=== PATIENT | female | born 1950 | race Caucasian/White ===

== ENCOUNTER 2022-10-25 07:00 | Outpatient (CLI) | payer MEDICARE, OTHER ==
--- NOTE | 2022-10-25 20:57 | XRAY Report ---
PROCEDURE: Foot 3 View LT INDICATIONS: LEFT FOOT INFECTION TECHNIQUE: 3 views of the foot were acquired. COMPARISON: None. FINDINGS: Bones: There are bony erosions and fragmentation of the first distal phalanx distally consistent with sequelae of osteomyelitis. Remaining visualized osseous structures appear intact. No dislocations. Soft tissues: There is soft tissue swelling of the great toe without definite soft tissue gas or disc rete ulcer. IMPRESSION: 1. Bony erosions and fragmentation of the first distal phalanx consistent with sequelae of osteomyeli tis. Reviewed by: Noam Alves MD on 10/25/2022 8:55 PM PST Approved by: Noam Alves MD on 10/25/2022 8:55 PM [facility] Station ID: [id number]
== END 2022-10-25 07:01 | disposition home or self-care (01) ==
LOC: DI.S 07:00
PROVIDERS: ATTEND Physician Assistant
DX: E11.42 Type 2 diabetes mellitus with diabetic polyneuropathy (principal); M85.872 Other specified disorders of bone density and structure, left ankle and foot

== ENCOUNTER 2022-10-25 20:06 | Emergency (ER) | payer MEDICARE ==
[2022-10-25] MEDS ORDERED: VANCOMYCIN INJ 1.25 GM in SODIUM CHLORIDE 0.9% 250 ML IV STA (20:32)
[2022-10-25] MEDS ORDERED: KETOROLAC 15 MG/ML VIAL IVP STA (20:36)
--- NOTE | 2022-10-25 20:40 | ED Physician Documentation ---
History of Present Illness - Stated complaint Stated Complaint: LT TOE INFECTION - Chief complaint Chief Complaint: Ext Problem - History obtained from History obtained from: Patient - Additonal information Additional information: 71-year-old woman past medical history of diabetes, ckd, presents with right first toe redness over the proximal couple of weeks. Patient Went to clinic a week ago and was provided with antifungal ointment but the redness progressed and led to swelling, pain and subjective fevers. Otherwise asymptomatic.Denies trauma. Review of Systems Constitutional: reports: Fever, Chills Skin: reports: Other (erythema of toe) Musculoskeletal: reports: Extremity pain, Extremity swelling PD PAST MEDICAL HISTORY - Past Medical History Past Medical History: Yes Cardiovascular: Hypertension, High cholesterol Respiratory: Sleep apnea, CPAP use Endocrine/Autoimmune: Type 2 diabetes Psych: Depression - Past Surgical History Past Surgical History: Yes HEENT: Other - Present Medications Home Medications: Ambulatory Orders Medication Instructions Recorded Confirmed Insulin Glargine [Lantus] 30 units SQ DAILY 05/04/14 10/25/22 Insulin NPH Human Isophane 40 units SQ BID 05/04/14 10/25/22 [Humulin N] Calcium/D3/Zinc/Copper/Ismael 1 tab PO DAILY 10/25/22 10/25/22 [Citracal-D3 Maximum Plus Caplt] Dapagliflozin Propanediol [Farxiga] 5 mg PO DAILY 10/25/22 10/25/22 Doxycycline Hyclate 100 mg PO BID 10 Days #20 tab 10/25/22 Losartan [Cozaar] 50 mg PO DAILY 10/25/22 10/25/22 Mupirocin 2% Oint [Bactroban 2% 1 applic TOP BID 14 Days #50 gm 10/25/22 Oint] NIFEdipine [Procardia Xl] 30 mg PO DAILY 10/25/22 10/25/22 Rosuvastatin Calcium [Crestor] 10 mg PO DAILY 10/25/22 10/25/22 Semaglutide [Ozempic] 1 tab PO ONCE 10/25/22 10/25/22 Sertraline [Zoloft] 25 mg PO DAILY 10/25/22 10/25/22 Spironolactone [Aldactone] 25 mg PO DAILY 10/25/22 10/25/22 cephALEXin [Keflex] 500 mg PO BID #20 cap 10/25/22 - Allergies Allergies/Adverse Reactions: Allergies Allergy/AdvReac Type Severity Reaction Status Date / Time varenicline tartrate * AdvReac Unknown Verified 10/25/22 20:10 [From Chantix] - Social History Does the pt smoke?: No Smoking Status: Never smoker Does the pt drink ETOH?: No Does the pt have substance abuse?: No - Immunizations Immunizations are current?: Yes - POLST Patient has POLST: No PD ED PE NORMAL - Vitals Vital signs reviewed: Yes - General General: Alert and oriented X 3, No acute distress, Well developed/nourished - Derm Derm: Normal color, Warm and dry, Other (Erythema, swelling of left first toe.) - Extremities Extremities: Other (Left first toe tender to palpation. evidence of fungal nail infection to all toes. 2+ DP pulses bilaterally.) Results - Vitals Vitals: Vital Signs - 24 hr 10/25/22 20:11 Temperature 37.5 C Heart Rate 102 H Respiratory 18 Rate Blood Pressure 151/73 H O2 Saturation 98 Oxygen O2 Source Room air - Labs Labs: Laboratory Tests 10/25/22 10/25/22 10/25/22 20:53 20:53 20:53 WBC 15.7 H RBC 4.79 Hgb 12.6 Hct 39.4 MCV 82.3 MCH 26.3 L MCHC 32.0 RDW 12.6 Plt Count 368 MPV 8.4 Neut # (Auto) 10.7 H Lymph # (Auto) 3.8 H Cochran # (Auto) 0.9 Eos # (Auto) 0.2 Baso # (Auto) 0.1 Absolute Nucleated RBC 0.00 Nucleated RBC % 0.0 ESR Sodium 133 L Potassium 3.9 Chloride 95 L Carbon Dioxide 25 Anion Gap 13.0 BUN 30 H Creatinine 1.9 H Estimated GFR (MDRD) 26 L Glucose 193 H Lactic Acid 0.9 Calcium 8.8 Total Bilirubin 0.6 AST 15 ALT 18 Alkaline Phosphatase 103 C-Reactive Protein 4.5 H Total Protein 7.6 Albumin 4.1 Globulin 3.5 Albumin/Globulin Ratio 1.2 10/25/22 20:53 WBC RBC Hgb Hct MCV MCH MCHC RDW Plt Count MPV Neut # (Auto) Lymph # (Auto) Cochran # (Auto) Eos # (Auto) Baso # (Auto) Absolute Nucleated RBC Nucleated RBC % ESR 70 H Sodium Potassium Chloride Carbon Dioxide Anion Gap BUN Creatinine Estimated GFR (MDRD) Glucose Lactic Acid Calcium Total Bilirubin AST ALT Alkaline Phosphatase C-Reactive Protein Total Protein Albumin Globulin Albumin/Globulin Ratio PD Medical Decision Making - ED course ED course: 71-year-old woman presents with left first toe osteomyelitis. X-ray of the toe ordered from walk-in clinic. I reviewed the x-ray and interpreted to osteomyelitis, corroborated by independent outside radiology report.I also obtained CBC, chemistry, inflammatory markers including ESR, CRP. Lab work was remarkable for leukocytosis with white blood cell count of 15.7, elevated ESR and CRP. Patient has creatinine 1.9 with GFR 26 without previous labs available. Plan to provide dosage adjusted antibiotics accordingly. Because the patient does not currently have a fever she does not meet criteria for admission however she was advised to return if she spikes temperature higher than 100.4 and she can be admitted. Blood cultures were sent and she will be called back if she has bacteremia. Plan to follow-up with Steffi Castellanos, primary care provider at [facility]. Return precautions discussed. Antibiotics sent to pharmacy. Departure - Departure Clinical Impression: Osteomyelitis Condition: Good Instructions: Osteomyelitis Dc Prescriptions: Mupirocin 2% Oint [Bactroban 2% Oint] 1 applic TOP BID 14 Days #50 gm Doxycycline Hyclate 100 mg PO BID 10 Days #20 tab cephALEXin [Keflex] 500 mg PO BID #20 cap Comments: You were seen in the emergency department for osteomyelitis (bone infection of the left first toe). Antibiotics were sent to your pharmacy. You received first dose of vancomycin here in the emergency department.Blood cultures were drawn and we will call you with results. If there is bacteria in your bloodstream based on the blood cultures then you will be asked to come back for admission.Plan to follow-up with your primary care provider Steffi Castellanos. Return if the redness does not improve or increases within the next 24 to 48 hours. Please follow-up for repeat check in 48 hours at walk-in clinic or in the emergency department.
[2022-10-25 21:05] LABS: BASOPHILS # (AUTO) 0.1 10^3/uL (0.0-0.1); BASOPHILS % (AUTO) 0.3 %; EOSINOPHILS # (AUTO) 0.2 10^3/uL (0.0-0.7); EOSINOPHILS % (AUTO) 1.2 %; HCT - HEMATOCRIT 39.4 % (37.0-47.0); HGB - HEMOGLOBIN 12.6 g/dL (12.0-16.0); LYMPHOCYTES # (AUTO) 3.8 10^3/uL (1.5-3.5); LYMPHOCYTES % (AUTO) 24.2 %; MEAN CORPUSCULAR HEMOGLOBIN 26.3 pg (27.0-31.0); MEAN CORPUSCULAR VOLUME 82.3 fL (81.0-99.0); MEAN PLATELET VOLUME 8.4 fL (7.9-10.8); MONOCYTES # (AUTO) 0.9 10^3/uL (0.0-1.0); MONOCYTES % (AUTO) 5.6 %; NEUTROPHILS # (AUTO) 10.7 10^3/uL (1.5-6.6); NEUTROPHILS % (AUTO) 68.2 %; PLT - PLATELET COUNT 368 10^3/uL (130-450); RED BLOOD COUNT 4.79 10^6/uL (4.20-5.40); RED CELL DISTRIBUTION WIDTH 12.6 % (12.0-15.0); WHITE BLOOD COUNT 15.7 x10^3/uL (4.8-10.8)
[2022-10-25] MEDS ORDERED: VANCOMYCIN 1 GM VIAL ONE ×2 (21:09→21:14)
[2022-10-25 21:19] LABS: ALBUMIN 4.1 g/dL (3.2-5.5); ALBUMIN/GLOBULIN RATIO 1.2 (1.0-2.2); BILIRUBIN,TOTAL 0.6 mg/dL (0.2-1.0); CALCIUM 8.8 mg/dL (8.5-10.3); CREATININE 1.9 mg/dL (0.4-1.0); CRP - C-REACTIVE PROTEIN 4.5 mg/dL (0-1.0); POTASSIUM 3.9 mmol/L (3.5-5.0); TOTAL PROTEIN 7.6 g/dL (6.7-8.2)
[2022-10-25 23:06] VITALS: BP 154/72
== END 2022-10-25 23:52 | disposition home or self-care (01) ==
LOC: ED 20:06
DX: E11.69 Type 2 diabetes mellitus with other specified complication (principal); M86.9 Osteomyelitis, unspecified; Z79.4 Long term (current) use of insulin; I10 Essential (primary) hypertension
CPT/HCPCS: 36415; 80053; 83605; 85025; 85651; 86140; 87040; 96365; 96375; 99284; J3370

== ENCOUNTER 2022-11-22 13:03 | Outpatient (CLI) | payer MEDICARE ==
[2022-11-22 13:09] LABS: BASOPHILS % (AUTO) 0.3 %; EOSINOPHILS # (AUTO) 0.2 10^3/uL (0.0-0.7); EOSINOPHILS % (AUTO) 1.3 %; HCT - HEMATOCRIT 37.8 % (37.0-47.0); HGB - HEMOGLOBIN 11.9 g/dL (12.0-16.0); LYMPHOCYTES # (AUTO) 3.3 10^3/uL (1.5-3.5); LYMPHOCYTES % (AUTO) 25.1 %; MEAN CORPUSCULAR HGB CONC 31.5 g/dL (32.0-36.0); MEAN CORPUSCULAR VOLUME 82.7 fL (81.0-99.0); MEAN PLATELET VOLUME 9.5 fL (7.9-10.8); MONOCYTES # (AUTO) 0.7 10^3/uL (0.0-1.0); MONOCYTES % (AUTO) 5.3 %; NEUTROPHILS % (AUTO) 67.7 %; PLT - PLATELET COUNT 296 10^3/uL (130-450); RED BLOOD COUNT 4.57 10^6/uL (4.20-5.40); RED CELL DISTRIBUTION WIDTH 13.1 % (12.0-15.0); WHITE BLOOD COUNT 13.3 x10^3/uL (4.8-10.8)
[2022-11-22 13:26] LABS: ALBUMIN 3.4 g/dL (3.2-5.5); ALBUMIN/GLOBULIN RATIO 1.3 (1.0-2.2); ALKALINE PHOSPHATASE 90 IU/L (42-121); ALT ALANINE AMINOTRANSFERASE 21 IU/L (10-60); AST ASPARTATE AMINOTRANSFERASE 19 IU/L (10-42); BILIRUBIN,TOTAL 0.6 mg/dL (0.2-1.0); BUN - BLOOD UREA NITROGEN 31 mg/dL (6-20); CALCIUM 8.9 mg/dL (8.5-10.3); CARBON DIOXIDE - CO2 24 mmol/L (21-32); CHLORIDE 100 mmol/L (101-111); CK- CREATINE KINASE 99 IU/L (22-269); CREATININE 1.8 mg/dL (0.4-1.0); GFR - MDRD 28 (>89); GLUCOSE 216 mg/dL (70-100); POTASSIUM 4.2 mmol/L (3.5-5.0); SODIUM 134 mmol/L (135-145); TOTAL PROTEIN 6.1 g/dL (6.7-8.2)
[2022-11-22 13:32] LABS: CRP - C-REACTIVE PROTEIN < 1.0 mg/dL (0-1.0)
== END 2022-11-22 13:04 | disposition home or self-care (01) ==
LOC: LAB.R 13:03
PROVIDERS: ATTEND Internal Medicine Infectious Disease
DX: M86.9 Osteomyelitis, unspecified (principal)
CPT/HCPCS: 80053; 82550; 85025; 86140

== ENCOUNTER 2022-11-30 14:01 | Outpatient (CLI) | payer MEDICARE ==
[2022-11-30 19:54] LABS: BASOPHILS # (AUTO) 0.1 10^3/uL (0.0-0.1); BASOPHILS % (AUTO) 0.7 %; EOSINOPHILS # (AUTO) 0.2 10^3/uL (0.0-0.7); EOSINOPHILS % (AUTO) 2.5 %; HGB - HEMOGLOBIN 12.7 g/dL (12.0-16.0); LYMPHOCYTES # (AUTO) 2.2 10^3/uL (1.5-3.5); LYMPHOCYTES % (AUTO) 25.1 %; MEAN CORPUSCULAR HEMOGLOBIN 25.7 pg (27.0-31.0); MEAN CORPUSCULAR VOLUME 82.8 fL (81.0-99.0); MEAN PLATELET VOLUME 8.9 fL (7.9-10.8); MONOCYTES # (AUTO) 0.8 10^3/uL (0.0-1.0); MONOCYTES % (AUTO) 9.4 %; NEUTROPHILS # (AUTO) 5.5 10^3/uL (1.5-6.6); NEUTROPHILS % (AUTO) 62.1 %; PLT - PLATELET COUNT 272 10^3/uL (130-450); RED BLOOD COUNT 4.95 10^6/uL (4.20-5.40); RED CELL DISTRIBUTION WIDTH 13.4 % (12.0-15.0); WHITE BLOOD COUNT 8.9 x10^3/uL (4.8-10.8)
[2022-11-30 19:58] LABS: ALBUMIN 3.6 g/dL (3.2-5.5); ALBUMIN/GLOBULIN RATIO 1.1 (1.0-2.2); BILIRUBIN,TOTAL 0.4 mg/dL (0.2-1.0); CALCIUM 9.2 mg/dL (8.5-10.3); CREATININE 2.1 mg/dL (0.4-1.0); CRP - C-REACTIVE PROTEIN 1.1 mg/dL (0-1.0); POTASSIUM 4.3 mmol/L (3.5-5.0)
== END 2022-11-30 14:02 | disposition home or self-care (01) ==
LOC: LAB.S 14:01
PROVIDERS: ATTEND Internal Medicine Infectious Disease
DX: M86.9 Osteomyelitis, unspecified (principal)
CPT/HCPCS: 36415; 80053; 82550; 85025; 86140

== ENCOUNTER 2022-11-30 18:07 | Emergency (ER) | payer MEDICARE ==
[2022-11-30] MEDS ORDERED: ACETAMINOPHEN 500 MG TABLET PO STA (18:37)
[2022-11-30 19:10] LABS: BASOPHILS % (AUTO) 0.2 %; EOSINOPHILS # (AUTO) 0.2 10^3/uL (0.0-0.7); EOSINOPHILS % (AUTO) 2.2 %; HCT - HEMATOCRIT 39.7 % (37.0-47.0); HGB - HEMOGLOBIN 12.8 g/dL (12.0-16.0); LYMPHOCYTES # (AUTO) 2.4 10^3/uL (1.5-3.5); LYMPHOCYTES % (AUTO) 26.6 %; MEAN CORPUSCULAR HEMOGLOBIN 26.3 pg (27.0-31.0); MEAN CORPUSCULAR HGB CONC 32.2 g/dL (32.0-36.0); MEAN CORPUSCULAR VOLUME 81.7 fL (81.0-99.0); MEAN PLATELET VOLUME 8.5 fL (7.9-10.8); MONOCYTES # (AUTO) 0.8 10^3/uL (0.0-1.0); MONOCYTES % (AUTO) 9.1 %; NEUTROPHILS # (AUTO) 5.6 10^3/uL (1.5-6.6); NEUTROPHILS % (AUTO) 61.5 %; PLT - PLATELET COUNT 267 10^3/uL (130-450); RED BLOOD COUNT 4.86 10^6/uL (4.20-5.40); RED CELL DISTRIBUTION WIDTH 13.3 % (12.0-15.0); WHITE BLOOD COUNT 9.1 x10^3/uL (4.8-10.8)
[2022-11-30 19:25] LABS: ALBUMIN 3.8 g/dL (3.2-5.5); ALBUMIN/GLOBULIN RATIO 1.1 (1.0-2.2); BILIRUBIN,TOTAL 0.5 mg/dL (0.2-1.0); CALCIUM 9.2 mg/dL (8.5-10.3); POTASSIUM 4.3 mmol/L (3.5-5.0); TOTAL PROTEIN 7.3 g/dL (6.7-8.2)
--- NOTE | 2022-11-30 19:45 | XRAY Report ---
PROCEDURE: Chest 1 View X-Ray INDICATIONS: fever TECHNIQUE: One view of the chest was acquired. COMPARISON: None. FINDINGS: Surgical changes and devices: Right central line terminates in the SVC. Lungs and pleura: Possible vague opacity projecting over the left lower lung. No dense consolidation or pleural effusion. Mediastinum: Heart size is within normal limits. Bones and chest wall: No suspicious bony lesions. Overlying soft tissues appear unremarkable. IMPRESSION: Possible vague opacity in the left lower lung, representing atelectasis or infection/inflammation. Co nsider future imaging surveillance to assess for resolution. Reviewed by: Ifeanyi Willoughby MD on 11/30/2022 7:44 PM PST Approved by: Ifeanyi Willoughby MD on 11/30/2022 7:44 PM PST Station ID: [id number]
--- NOTE | 2022-11-30 19:53 | ED Physician Documentation ---
History of Present Illness - Stated complaint Stated Complaint: COUGH,FEVER - Chief complaint Chief Complaint: General - History obtained from History obtained from: Patient - Additonal information Additional information: 72-year-old woman with chronic kidney disease has osteomyelitis of the left great toe and has been getting IV daptomycin every other day renally dosed for this and it is improving. She has a tunneled catheter in the right upper chest wall. For the last 3 days or so she had a cough with fevers. Given her medical complexity she was sent from the urgent care for further evaluation and treatment. PD PAST MEDICAL HISTORY - Past Medical History Cardiovascular: Hypertension, High cholesterol Respiratory: Sleep apnea, CPAP use Endocrine/Autoimmune: Type 2 diabetes Psych: Depression Musculoskeletal: Other Other Past Medical History: chronic osteomyelitis - Past Surgical History Past Surgical History: Yes HEENT: Other - Present Medications Home Medications: Ambulatory Orders Medication Instructions Recorded Confirmed Insulin Glargine [Lantus] 60 units SQ BID 05/04/14 11/30/22 Insulin NPH Human Isophane 15 units SQ BID 05/04/14 11/30/22 [Humulin N] Calcium/D3/Zinc/Copper/Ismael 1 tab PO DAILY 10/25/22 11/30/22 [Citracal-D3 Maximum Plus Caplt] Dapagliflozin Propanediol [Farxiga] 5 mg PO DAILY 10/25/22 11/30/22 Losartan [Cozaar] 50 mg PO DAILY 10/25/22 11/30/22 NIFEdipine [Procardia Xl] 30 mg PO DAILY 10/25/22 11/30/22 Semaglutide [Ozempic] 0.25 mg PO OAW 10/25/22 11/30/22 Sertraline [Zoloft] 25 mg PO DAILY 10/25/22 11/30/22 Spironolactone [Aldactone] 25 mg PO DAILY 10/25/22 11/30/22 Amox/Clav 875/125 [Augmentin] 1 each PO Q12H #20 tablet 11/30/22 Azithromycin [Zithromax] 1 tab PO DAILY #4 tab 11/30/22 DAPTOmycin [Daptomycin] 500 mg IV .EVERYOTHERDAY 11/30/22 11/30/22 Furosemide [Lasix] 20 mg PO .THREEXAWEEK 11/30/22 11/30/22 - Allergies Allergies/Adverse Reactions: Allergies Allergy/AdvReac Type Severity Reaction Status Date / Time varenicline tartrate * AdvReac Unknown Verified 11/30/22 18:22 [From Chantix] - Social History Does the pt smoke?: No Smoking Status: Never smoker Does the pt drink ETOH?: No Does the pt have substance abuse?: No - Immunizations Immunizations are current?: Yes - POLST Patient has POLST: No PD ED PE NORMAL - Vitals Vital signs reviewed: Yes - General General: Alert and oriented X 3, No acute distress - HEENT HEENT: PERRL, EOMI - Neck Neck: Supple, no meningeal sign, No bony TTP - Cardiac Cardiac: Other (Rhonchi at both bases with mild expiratory wheezes. Nonlabored.) - Respiratory Respiratory: No respiratory distress, Clear bilaterally, Other (Right upper chest wall tunneled catheter without signs of infection or tenderness.) - Back Back: No CVA TTP, No spinal TTP - Derm Derm: Normal color, Warm and dry - Extremities Extremities: Other (Mild redness under and around the left great toe nail which is improving per patient.) - Neuro Neuro: Alert and oriented X 3, Normal speech Results - Vitals Vitals: Vital Signs - 24 hr 11/30/22 11/30/22 11/30/22 18:11 19:56 20:36 Temperature 38.1 C H 37.8 C 37.3 C Heart Rate 104 H 98 90 Respiratory 14 12 18 Rate Blood Pressure 167/64 H 140/77 H 156/76 H O2 Saturation 97 95 96 Oxygen O2 Source Room air - Labs Labs: Laboratory Tests 11/30/22 11/30/22 11/30/22 19:01 19:01 19:01 WBC 9.1 RBC 4.86 Hgb 12.8 Hct 39.7 MCV 81.7 MCH 26.3 L MCHC 32.2 RDW 13.3 Plt Count 267 MPV 8.5 Neut # (Auto) 5.6 Lymph # (Auto) 2.4 Tompkins # (Auto) 0.8 Eos # (Auto) 0.2 Baso # (Auto) 0.0 Absolute Nucleated RBC 0.00 Nucleated RBC % 0.0 Sodium 134 L Potassium 4.3 Chloride 96 L Carbon Dioxide 27 Anion Gap 11.0 BUN 24 H Creatinine 2.0 H Estimated GFR (MDRD) 25 L Glucose 217 H Lactic Acid 0.9 Calcium 9.2 Total Bilirubin 0.5 AST 28 ALT 32 Alkaline Phosphatase 94 Total Protein 7.3 Albumin 3.8 Globulin 3.5 Albumin/Globulin Ratio 1.1 Urine Color Urine Clarity Urine pH Ur Specific Webster Urine Protein Urine Glucose (UA) Urine Ketones Urine Occult Blood Urine Nitrite Urine Bilirubin Urine Urobilinogen Ur Leukocyte Esterase Urine RBC Urine WBC Ur Squamous Epith Cells Urine Bacteria Urine Culture Comments Nasal Adenovirus (PCR) Nasal B. parapertussis DNA (PCR) Nasal Coronavir 229E PCR Nasal Coronavir HKU1 PCR Nasal Coronavir NL63 PCR Nasal Coronavir OC43 PCR Nasal Enterovir/Rhinovir PCR Nasal Influenza B PCR Nasal Influenza A PCR Nasal Parainfluen 1 PCR Nasal Parainfluen 2 PCR Nasal Parainfluen 3 PCR Nasal Parainfluen 4 PCR Nasal RSV (PCR) Nasal B.pertussis DNA PCR Nasal C.pneumoniae (PCR) Leo Human Metapneumo PCR Nasal M.pneumoniae (PCR) Nasal SARS-CoV-2 (PCR) 11/30/22 11/30/22 19:04 19:20 WBC RBC Hgb Hct MCV MCH MCHC RDW Plt Count MPV Neut # (Auto) Lymph # (Auto) Tompkins # (Auto) Eos # (Auto) Baso # (Auto) Absolute Nucleated RBC Nucleated RBC % Sodium Potassium Chloride Carbon Dioxide Anion Gap BUN Creatinine Estimated GFR (MDRD) Glucose Lactic Acid Calcium Total Bilirubin AST ALT Alkaline Phosphatase Total Protein Albumin Globulin Albumin/Globulin Ratio Urine Color YELLOW Urine Clarity CLEAR Urine pH 6.0 Ur Specific Webster 1.020 Urine Protein >=300 H Urine Glucose (UA) 250 H Urine Ketones NEGATIVE Urine Occult Blood SMALL H Urine Nitrite NEGATIVE Urine Bilirubin NEGATIVE Urine Urobilinogen 0.2 (NORMAL) Ur Leukocyte Esterase NEGATIVE Urine RBC 6-10 H Urine WBC 0-3 Ur Squamous Epith Cells RARE Squamous Urine Bacteria None Seen Urine Culture Comments NOT INDICATED Nasal Adenovirus (PCR) NOT DETECTED Nasal B. parapertussis DNA (PCR) NOT DETECTED Nasal Coronavir 229E PCR NOT DETECTED Nasal Coronavir HKU1 PCR NOT DETECTED Nasal Coronavir NL63 PCR NOT DETECTED Nasal Coronavir OC43 PCR NOT DETECTED Nasal Enterovir/Rhinovir PCR NOT DETECTED Nasal Influenza B PCR NOT DETECTED Nasal Influenza A PCR NOT DETECTED Nasal Parainfluen 1 PCR NOT DETECTED Nasal Parainfluen 2 PCR NOT DETECTED Nasal Parainfluen 3 PCR NOT DETECTED Nasal Parainfluen 4 PCR NOT DETECTED Nasal RSV (PCR) NOT DETECTED Nasal B.pertussis DNA PCR NOT DETECTED Nasal C.pneumoniae (PCR) NOT DETECTED Leo Human Metapneumo PCR DETECTED A Nasal M.pneumoniae (PCR) NOT DETECTED Nasal SARS-CoV-2 (PCR) NOT DETECTED - Rads (name of study) Single view chest x-ray shows possible left basilar pneumonia Radiology: Final report received, EMP read indepedently PD Medical Decision Making - ED course ED course: 72yo female with recent osteo great toe, improving on daptomycin. Now with LRI, and biofire +metapneumovirus. and CXR + LLL pna. will tx with augmentin/azithro. Has appt with ID in a few days and given copies of labs for f/u. Departure - Departure Disposition: 01 Home, Self Care Clinical Impression: Human metapneumovirus (hMPV) pneumonia Pneumonia Qualifiers: Pneumonia type: due to unspecified organism Laterality: left Lung location: lower lobe of lung Qualified Code(s): J18.9 - Pneumonia, unspecified organism Condition: Good Record reviewed to determine appropriate education?: Yes Instructions: Pneumonia Dc Prescriptions: Amox/Clav 875/125 [Augmentin] 1 each PO Q12H #20 tablet Azithromycin [Zithromax] 1 tab PO DAILY #4 tab Comments: Your were found today to have a left basilar pneumonia and a viral panel positive for metapneumovirus. You renal function is decreasing, Please discuss with your cia agent. Also discussed your visit today with your infectious disease doctor that you are seeing tomorrow. Discharge Date/Time: 11/30/22 20:42
[2022-11-30 20:01] LABS: BILIRUBIN,URINE NEGATIVE (NEGATIVE); GLUCOSE, URINE (UA) 250 mg/dL (NEGATIVE); KETONES,URINE (UA) NEGATIVE (NEGATIVE); LEUKOCYTE ESTERASE, URINE NEGATIVE (NEGATIVE); NITRITE,URINE NEGATIVE (NEGATIVE); OCCULT BLOOD,URINE SMALL (NEGATIVE); PROTEIN,URINE >=300 mg/dL (NEGATIVE); UROBILINOGEN,URINE 0.2 (NORMAL) E.U./dL (NORMAL)
[2022-11-30 20:05] LABS: B. PARAPERTUSSIS- RESP PCR PAN NOT DETECTED; B. PERTUSSIS- RESP PCR PANEL NOT DETECTED; C. PNEUMONIAE- RESP PCR PANEL NOT DETECTED; CORONAVIRUS 229E-RESP PCR NOT DETECTED; CORONAVIRUS HKU1-RESP PCR NOT DETECTED; CORONAVIRUS NL63-RESP PCR NOT DETECTED; CORONAVIRUS OC43-RESP PCR NOT DETECTED; HUMAN METAPNEUMOVIRUS DETECTED; INFLUENZA A- RESP PCR PANEL NOT DETECTED; INFLUENZA B - RESP PCR PANEL NOT DETECTED; M. PNEUMONIAE- RESP PCR PANEL NOT DETECTED; PARAINFLUENZA VIRUS 1 NOT DETECTED; PARAINFLUENZA VIRUS 2 NOT DETECTED; PARAINFLUENZA VIRUS 3 NOT DETECTED; PARAINFLUENZA VIRUS 4 NOT DETECTED; RHINOVIRUS/ENTEROVIRUS NOT DETECTED; RSV- RESP PCR PANEL NOT DETECTED; SARS-CoV-2 -RESP PCR PANEL NOT DETECTED
[2022-11-30 20:11] LABS: BACTERIA,URINE None Seen /HPF (None Seen); CLARITY,URINE CLEAR (CLEAR); SQUAMOUS EPITHELIAL CELL,UR RARE Squamous (<= Few); WBC,URINE 0-3 /HPF (0-5)
[2022-11-30] MEDS ORDERED: AMOX/CLAV 875 MG/125 MG TABLET PO STA (20:24)
[2022-11-30] MEDS ORDERED: AZITHROMYCIN 250 MG TABLET PO STA (20:24)
[2022-11-30 20:36] VITALS: BP 156/76
== END 2022-11-30 20:42 | disposition home or self-care (01) ==
LOC: ED 18:07
DX: J12.3 Human metapneumovirus pneumonia (principal); M86.9 Osteomyelitis, unspecified; E11.22 Type 2 diabetes mellitus with diabetic chronic kidney disease; I12.9 Hypertensive chronic kidney disease with stage 1 through stage 4 chronic kidney disease, or unspecified chronic kidney disease; N18.9 Chronic kidney disease, unspecified; Z79.4 Long term (current) use of insulin; Z20.822 Contact with and (suspected) exposure to COVID-19
CPT/HCPCS: 36415; 71045; 80053; 81001; 82550; 83605; 85025; 86140; 87040; 87633; 99284; A9270; 87086